=== PATIENT | male | born 1975 ===

== ENCOUNTER 2019-08-26 14:44 | Emergency (ER) | payer OTHER ==
[~2019-08-26] VITALS: Ht 177.8 cm; Wt 84.1 kg
[2019-08-26 15:00] VITALS: BP 129/90; TEMP 98.4
[2019-08-26] MEDS ORDERED: TAMIFLU 75MG75 MG PO (16:38)
[2019-08-26 16:53] VITALS: PULSE 82
== END 2019-08-26 16:50 | disposition home or self-care (01) ==
LOC: COL.ER 14:44
DX: J10.1 Influenza due to other identified influenza virus with other respiratory manifestations (principal); Z88.1 Allergy status to other antibiotic agents; Z88.2 Allergy status to sulfonamides